=== PATIENT | female | born 2000 | race Caucasian/White ===

== ENCOUNTER 2018-03-12 11:19 | Emergency (ER) | payer OTHER ==
[2018-03-12 11:51] LABS: PLATELET COUNT 337 10^3/uL (150-400)
--- NOTE | 2018-03-12 11:59 | EDPHY ---
H & P Stated Complaint: Generalized abd pain x 5 days;sl nausea;LMP irreg;sent from for eval Time Seen by Provider: 03/12/18 11:30 HPI/ROS: CHIEF COMPLAINT: Abdominal pain possible appendicitis HISTORY OF PRESENT ILLNESS: 17-year-old female seen at urgent care and sent to the ER for evaluation possible appendicitis. She describes 5 days of progressive right lower quadrant abdominal pain as well as left flank pain. No dysuria no hematuria increased urinary frequency. She believes that she had a urinary tract infection however has not had treatment for this. Denies nausea or vomiting. Denies abnormal bowel movement. Last menstrual period 1 week ago. Denies abnormal vaginal bleeding or discharge. No dyspareunia. Last oral intake was a piece of toast and coffee at 8:30 a.m. REVIEW OF SYSTEMS: 10 systems reviewed and negative with the exception of the elements mentioned in the history of present illness PAST MEDICAL & SURGICAL HISTORY: No pertinent medical or surgical history SOCIAL HISTORY: Nonsmoker student PHYSICAL EXAM (Prior to examination, patient consented to physical exam, hands were washed and my usual and customary physical exam procedures followed) 1) GENERAL: Well-developed, well-nourished, alert and oriented. Appears to be in no acute distress. 2) HEAD: Normocephalic, atraumatic 3) HEENT: Pupils equal, round, reactive to light bilaterally. Sclera anicteric. 4) NECK: Full range of motion, no meningeal signs. 5) LUNGS: Clear auscultation bilaterally, no wheezes, no rhonchi, no retractions. 6) HEART: Regular rate and rhythm, no murmur, no heave, no gallop. 7) ABDOMEN: No guarding, tender to palpation right lower quadrant negative Roberts's, negative Rovsing's, negative peritoneal sign, 8) MUSCULOSKELETAL: Moving all extremities, no focal areas of tenderness, no obvious trauma. No peripheral edema or discoloration. 9) BACK: Positive left CVA tenderness, no midline vertebral tenderness, no fluctuance, no step-off, no obvious trauma, no visual or palpable abnormality. 10) SKIN: No rash, no petechiae. 11) Psychiatric: Patient is oriented X 3, there is no agitation. DIFFERENTIAL DIAGNOSIS: My differential diagnosis includes, but is not limited to, acute appendicitis, acute cholecystitis, bowel obstruction, acute pancreatitis, ovarian torsion, ectopic , gastritis and urinary tract infection. The patient understands that this diagnosis is provisional and can never be 100% accurate. This is a partial list of diagnoses considered. These considerations are based on history, physical exam, past history and reassessment. - Personal History LMP (Females 10-55): 1-7 Days Ago Current Tetanus Diphtheria and Acellular Pertussis (TDAP): Yes - Medical/Surgical History Other PMH: acne - Social History Smoking Status: Never smoked Constitutional: Initial Vital Signs Temperature (C) 36.5 C 03/12/18 11:20 Heart Rate 92 03/12/18 11:20 Respiratory Rate 18 03/12/18 11:20 Blood Pressure 130/83 H 03/12/18 11:20 O2 Sat (%) 98 03/12/18 11:20 O2 Delivery Mode Room Air Allergies/Adverse Reactions: No Known Allergies Allergy (Unverified 03/12/18 11:28) Home Medications: Medication Instructions Recorded Amphet Asp and D/Amphet [Adderall 20 mg PO 03/12/18 20 mg (*)] Norgestimate-Ethinyl Estradiol 1 each PO 03/12/18 [Trinessa Lo Tablet] Phenazopyridine HCl [Pyridium] 200 mg PO PC #10 tab 03/12/18 Spironolactone [Aldactone 25 MG 25 mg PO DAILY 03/12/18 (*)] levOFLOXACIN [levAQUIN (*)] 750 mg PO DAILY #6 tab 03/12/18 Medical Decision Making - Diagnostics Imaging Results: Imaging Impressions Abdomen Ultrasound 03/12/18 11:51 Impression: 1. Normal pelvic ultrasound. 2. Normal appendix right lower quadrant. 3. Prominent node along the right pelvic mesentery. This is nonspecific but can be seen with mesenteric adenitis. Findings discussed with Melania COWART at 13:25 hour, 03/12/2018. Abdomen/Pelvis Ultrasound 03/12/18 11:51 Impression: 1. Mild diffuse thickening of the cortex left kidney with slight decreased echogenicity. This is relatively subtle but could represent mild left-sided pyelonephritis without focal abscess. 2. Mild diffuse bladder wall thickening. Consider mild cystitis that may extend into the proximal urethra. Findings discussed with Melania Billy PAC at 13:30 hour, 03/12/2018. Pelvic/Renal Ultrasound 03/12/18 11:52 Impression: 1. Normal pelvic ultrasound. 2. Normal appendix right lower quadrant. 3. Prominent node along the right pelvic mesentery. This is nonspecific but can be seen with mesenteric adenitis. Findings discussed with Melania Billy PAC at 13:25 hour, 03/12/2018. Images reviewed myself ED Course/Re-evaluation: 11:57 a.m.: Will obtain diagnostic studies including pelvic ultrasound, abdominal ultrasound as well as renal ultrasound as she is complaining of left flank pain with no evidence of cystitis on pre-hospital/Urgent Care urinalysis. I saw this patient independently based on established practice protocols. Care of patient under supervision of secondary supervising physician Dr Dillan Jordan with whom I discussed case. 1:30 p.m.: Ultrasound interpreted by radiologist shows normal appendix, thickening of the left kidney consistent with possible pyelonephritis, see full report. 1:35 p.m.: Re-evaluation. Discussed with the patient her imaging studies . Will treat pyelonephritis with oral Levaquin per 2017 [facility] Antibiotic Stewardship Guidelines (pg 5). Discussed my usual and customary fluoroquinolone precautions instructions. I think the benefits of fluoroquinolone outweigh the risks however patient has been informed of the potential risks. She verbalized understanding of this. - Data Points Laboratory Results: Laboratory Results 03/12/18 11:40 03/12/18 11:40 03/12/18 03/12/18 03/12/18 11:40 11:40 11:40 WBC RBC Hgb Hct MCV MCH MCHC RDW Plt Count MPV Neut % (Auto) Lymph % (Auto) [place] % (Auto) Eos % (Auto) Baso % (Auto) Nucleat RBC Rel Count Absolute Neuts (auto) Absolute Lymphs (auto) Absolute Monos (auto) Absolute Eos (auto) Absolute Basos (auto) Absolute Nucleated RBC Immature Gran % Immature Gran # Sodium 138 mEq/L mEq/L (135-145) Potassium 4.0 mEq/L mEq/L (3.3-5.0) Chloride 102 mEq/L mEq/L (97-110) Carbon Dioxide 23 mEq/l mEq/l (22-31) Anion Gap 13 mEq/L mEq/L (6-14) BUN 8 mg/dL mg/dL (7-23) Creatinine 0.7 mg/dL mg/dL (0.6-1.0) Estimated GFR > 60 Glucose 95 mg/dL mg/dL (70-100) Calcium 10.2 mg/dL mg/dL (8.5-10.4) Total Bilirubin 0.2 mg/dL mg/dL (0.1-1.4) Conjugated Bilirubin 0.2 mg/dL mg/dL (0.0-0.5) Unconjugated Bilirubin 0.0 mg/dL mg/dL (0.0-1.1) AST 18 IU/L IU/L (14-46) ALT 16 IU/L IU/L (9-52) Alkaline Phosphatase 79 IU/L IU/L (38-126) Total Protein 8.2 g/dL g/dL (6.3-8.2) Albumin 4.6 g/dL g/dL (3.5-5.0) Lipase 99 IU/L IU/L (23-300) Beta HCG, Qual NEGATIVE Urine Color PALE YELLOW Urine Appearance CLEAR Urine pH 6.0 (5.0-7.5) Ur Specific [place] 1.002 (1.002-1.030) Urine Protein NEGATIVE (NEGATIVE) Urine Ketones NEGATIVE (NEGATIVE) Urine Blood 1+ H (NEGATIVE) Urine Nitrate NEGATIVE (NEGATIVE) Urine Bilirubin NEGATIVE (NEGATIVE) Urine Urobilinogen NEGATIVE EU EU (0.2-1.0) Ur Leukocyte Esterase TRACE H (NEGATIVE) Urine RBC 1-3 /hpf /hpf (0-3) Urine WBC 5-10 /hpf H /hpf (0-3) Ur Epithelial Cells TRACE /lpf /lpf (NONE-1+) Urine Bacteria TRACE /hpf H /hpf (NONE SEEN) Urine Mucus TRACE /lpf /lpf (NONE-1+) Urine Glucose NEGATIVE (NEGATIVE) 03/12/18 11:40 WBC 8.35 10^3/uL 10^3/uL (3.80-9.50) RBC 4.49 10^6/uL 10^6/uL (4.18-5.33) Hgb 13.1 g/dL g/dL (12.6-16.3) Hct 39.4 % % (38.0-47.0) MCV 87.8 fL fL (81.5-99.8) MCH 29.2 pg pg (27.9-34.1) MCHC 33.2 g/dL g/dL (32.4-36.7) RDW 12.8 % % (11.5-15.2) Plt Count 337 10^3/uL 10^3/uL (150-400) MPV 10.1 fL fL (8.7-11.7) Neut % (Auto) 68.5 % % (39.3-74.2) Lymph % (Auto) 22.5 % % (15.0-45.0) [place] % (Auto) 7.3 % % (4.5-13.0) Eos % (Auto) 0.7 % % (0.6-7.6) Baso % (Auto) 0.6 % % (0.3-1.7) Nucleat RBC Rel Count 0.0 % % (0.0-0.2) Absolute Neuts (auto) 5.72 10^3/uL 10^3/uL (1.70-6.50) Absolute Lymphs (auto) 1.88 10^3/uL 10^3/uL (1.00-3.00) Absolute Monos (auto) 0.61 10^3/uL 10^3/uL (0.30-0.80) Absolute Eos (auto) 0.06 10^3/uL 10^3/uL (0.03-0.40) Absolute Basos (auto) 0.05 10^3/uL 10^3/uL (0.02-0.10) Absolute Nucleated RBC 0.00 10^3/uL 10^3/uL (0-0.01) Immature Gran % 0.4 % % (0.0-1.1) Immature Gran # 0.03 10^3/uL 10^3/uL (0.00-0.10) Sodium Potassium Chloride Carbon Dioxide Anion Gap BUN Creatinine Estimated GFR Glucose Calcium Total Bilirubin Conjugated Bilirubin Unconjugated Bilirubin AST ALT Alkaline Phosphatase Total Protein Albumin Lipase Beta HCG, Qual Urine Color Urine Appearance Urine pH Ur Specific [place] Urine Protein Urine Ketones Urine Blood Urine Nitrate Urine Bilirubin Urine Urobilinogen Ur Leukocyte Esterase Urine RBC Urine WBC Ur Epithelial Cells Urine Bacteria Urine Mucus Urine Glucose Departure - Departure Disposition: Home, Routine, Self-Care Clinical Impression: Pyelonephritis Condition: Good Instructions: Phenazopyridine (By mouth), Levofloxacin (By mouth), Kidney Infection (ED), Flank Pain (ED) Additional Instructions: Return to the ER immediately if you experience fevers/chills, flu like symptoms , inability to tolerate oral intake, nausea or vomiting, or any other symptoms that concern you. Referrals: [facility] [Clinic] - 2-3 days, call for appt. Prescriptions: levOFLOXACIN [levAQUIN (*)] 750 mg PO DAILY #6 tab Phenazopyridine HCl [Pyridium] 200 mg PO PC #10 tab
[2018-03-12 13:16] VITALS: BP 114/81
== END 2018-03-12 14:00 | disposition home or self-care (01) ==
DX: N10 Acute pyelonephritis (principal)